=== PATIENT | female | born 1960 | race Caucasian/White ===

== ENCOUNTER 2021-03-17 14:13 | Outpatient (CLI) | payer BC, SELFPAY | END 2021-03-17 14:14 | disposition home or self-care (01) | PROVIDERS: PCP Family Medicine | DX: Z23 Encounter for immunization (principal) | CPT/HCPCS: 0001A; 91300 ==

== ENCOUNTER 2021-04-07 14:13 | Outpatient (CLI) | payer BC, SELFPAY | END 2021-04-07 14:14 | disposition home or self-care (01) | LOC: ANHCOVIDVC 14:14 | PROVIDERS: PCP Family Medicine | DX: Z23 Encounter for immunization (principal) | CPT/HCPCS: 0002A; 91300 ==

== ENCOUNTER 2021-06-01 14:29 | Outpatient (CLI) | payer BC, SELFPAY ==
--- NOTE | ~2021-06-01 | MM_ITS ---
EXAMINATION: MM screening [facility] BI w jace HISTORY: Screening TECHNIQUE: Craniocaudal and mediolateral oblique 3-D tomosynthesis images were obtained and synthetic 2-D images were generated. CAD analysis was submitted and interpreted. COMPARISON: Comparison to multiple prior studies sequentially, with oldest reviewed study dated . BREAST PARENCHYMAL COMPOSITION: The breasts are heterogeneously dense, which may obscure small masses . FINDINGS: There is no evidence of suspicious mass, calcification, or architectural distortion to sugg est malignancy in either breast. There has been no suspicious interval change. IMPRESSION: 1. No mammographic evidence of malignancy. 2. Recommend routine screening mammography in one year. BI-RADS Category 1: Negative Reviewed, dictated and finalized at location A.
== END 2021-06-01 14:30 | disposition home or self-care (01) ==
LOC: ANHIMG 14:32
PROVIDERS: PCP Family Medicine; Visit Provider Obstetrics & Gynecology
DX: Z12.31 Encounter for screening mammogram for malignant neoplasm of breast (principal)
CPT/HCPCS: 77063; 77067

== ENCOUNTER → 2022-10-30 13:03 | Outpatient (CLI) | payer BC, SELFPAY ==
--- NOTE | ~2022-10-30 | DEXA_ITS ---
Bone Density Report Name: MOISES PARMAR Age: 62 Sex: Female Ethnicity: White Date of : 1960 Indication: postmenopausal; screening for osteoporosis; hysterectomy; Referring Provider: FAUSTINA GALLAGHER Study: Bone densitometry was performed. Exam Date: October 30, 2022 Accession number: [id number] Bone Density: Region BMD T-score Z-score Classification AP Spine (L1-L4) 0.809 -2.2 -0.5 Osteopenia Femoral Neck (Left) 0.580 -2.4 -1.0 Osteopenia Total Hip (Left) 0.726 -1.8 -0.6 Osteopenia Femoral Neck (Right) 0.550 -2.7 -1.3 Osteoporosis Total Hip (Right) 0.704 -2.0 -0.8 Osteopenia Total Hip Mean 0.715 -1.9 -0.7 Osteopenia World Health Organization criteria for BMD impression classify patients as: Normal (T-score at or above -1.0), Osteopenia (T-score between -1.0 and -2.5), or Osteoporosis (T-score at or below -2.5). 10-year Fracture Risk: FRAX not reported because: Some T-score for Spine Total or Hip Total or Femoral Neck at or below -2.5 Treated for osteoporosis Clinical Information Provided by Patient: Is being treated for osteoporosis Has used the following medications: HRT (i.e. estrogen/hormone therapy), Calcium Has the following medical conditions: Hysterectomy Patient maximum height was 62 Menopause Age: 38 Drinks caffeinated beverages Onset of menses at age 14 Number of children 3 Impression: The patient has osteoporosis, based on the Right Femoral Neck T-score. Discussion: It is important to ask patients whether they are taking their medications and to encourage continued and appropriate compliance with their osteoporosis therapies to reduce fracture risk. It is also important to review their risk factors and encourage appropriate calcium and vitamin D intakes, exercise, fall prevention and other lifestyle measures. Follow-Up: Consider a repeat BMD and Vertebral Fracture Assessment (VFA) exam in 2 years or sooner if medically necessary, to reassess this patient's status. Reported by: [facility] on 10/30/2022 1:25:00 PM. Reviewed, dictated and finalized at location AGuanakito PEREZ
--- NOTE | ~2022-10-30 | MM_ITS ---
EXAMINATION: MM screening [facility] BI w jace HISTORY: Screening mammogram TECHNIQUE: Craniocaudal and mediolateral oblique 3-D tomosynthesis images were obtained and synthetic 2-D images were generated. CAD analysis was submitted and interpreted. COMPARISON: 06/01/2021, 10/24/2019, 09/26/2017 BREAST PARENCHYMAL COMPOSITION: There are scattered areas of fibroglandular density. FINDINGS: No suspicious mass, calcification, or architectural distortion are identified in either sushila ast to suggest malignancy. There has been no suspicious interval change. IMPRESSION: 1. No mammographic evidence of malignancy. 2. Recommend routine screening mammography in one year. BI-RADS Category 1: Negative Reviewed, dictated and finalized at location A. [employer]
== END ==
PROVIDERS: PCP Family Medicine; Visit Provider Obstetrics & Gynecology
DX: Z12.31 Encounter for screening mammogram for malignant neoplasm of breast (principal); Z78.0 Asymptomatic menopausal state; M85.89 Other specified disorders of bone density and structure, multiple sites; M81.0 Age-related osteoporosis without current pathological fracture
CPT/HCPCS: 77063; 77067; 77080

== ENCOUNTER 2024-05-28 14:48 | Outpatient (CLI) | payer BC, SELFPAY ==
--- NOTE | ~2024-05-28 | MM_ITS ---
EXAMINATION: MM screening [facility] BI w jace HISTORY: Screening mammogram TECHNIQUE: Craniocaudal and mediolateral oblique 3-D tomosynthesis images were obtained and synthetic 2-D images were generated. CAD analysis was submitted and interpreted. COMPARISON: 10/30/2022, 06/01/2021, 10/24/2019 BREAST PARENCHYMAL COMPOSITION:Dense: The breasts are heterogeneously dense, which may obscure small masses. FINDINGS: No suspicious mass, calcification, or architectural distortion are identified in either sushila ast to suggest malignancy. There has been no suspicious interval change. IMPRESSION: No mammographic evidence of malignancy. Recommend routine screening mammography in one year. BI-RADS Category 1: Negative Reviewed, dictated and finalized at location .
== END 2024-05-28 14:49 ==
PROVIDERS: PCP Family Medicine; Visit Provider Obstetrics & Gynecology
DX: Z12.31 Encounter for screening mammogram for malignant neoplasm of breast (principal)
CPT/HCPCS: 77063; 77067

== ENCOUNTER 2024-12-29 08:46 | Outpatient (CLI) | payer BC, SELFPAY ==
--- NOTE | ~2024-12-29 | XR_ITS ---
PA, oblique, and lateral views the right fifth finger CLINICAL HISTORY: Injury FINDINGS: There is an oblique, mildly displaced, intra-articular fracture of the dorsal aspect of the base the fifth distal phalanx. No other fracture or dislocation seen. Joint spaces are intact. Soft tissues are unremarkable. IMPRESSION: Oblique, intra-articular, displaced fracture of the base of the fifth distal phalanx, as detailed abo ve. Reviewed, dictated and finalized at location M. [employer] IMPRESSION: Oblique, intra-articular, displaced fracture of the base of the fifth distal ph alanx, as detailed above.
== END 2024-12-29 08:47 | disposition home or self-care (01) ==
LOC: GOSHIMG 08:46
PROVIDERS: PCP Nurse Practitioner Family; Visit Provider Nurse Practitioner Family
DX: S62.636A Displaced fracture of distal phalanx of right little finger, initial encounter for closed fracture (principal); X58.XXXA Exposure to other specified factors, initial encounter
CPT/HCPCS: 73140

== ENCOUNTER 2025-07-07 08:11 | Outpatient (CLI) | payer BC, SELFPAY ==
[2025-07-07 18:08] LABS: Hematocrit 39.6 % (37.0-47.0); Hemoglobin 12.5 g/dL (12.0-15.0); Immature Granulocyte Percent A 0.3 % (0-0.5); Lymphocytes Absolute Auto 1.06 K/mm3 (0.9-3.2); Mean Corpuscular HGB Conc 31.6 g/dl (32-36); Mean Corpuscular Hemoglobin 32.1 pg (26-34); Mean Corpuscular Volume 101.8 fl (80-100); Nucleated Red Blood Cells Absolute Auto 0.000 K/mm3 (0.0-0.012); Nucleated Red Blood Cells Perc 0.0 % (0.0-0.2); Platelet Count Result 248 k/mm3 (150-375); Red Blood Count 3.89 M/mm3 (4.2-5.4); White Blood Count 3.4 K/mm3 (4.5-10.0)
[2025-07-07 18:26] LABS: Alanine Aminotransferase 32 U/L (6-35); Albumin Level 4.1 g/dL (3.5-5.1); Alkaline Phosphatase 66 U/L (38-126); Anion Gap 5 mmol/L (4-12); Aspartate Amino Transferase 79 U/L (14-36); Bilirubin,Total 0.3 mg/dL (0.2-1.3); Blood Urea Nitrogen 14 mg/dL (7-17); Calcium 9.2 mg/dL (8.4-10.2); Carbon Dioxide 27 mmol/L (22-30); Chloride 107 mmol/L (98-107); Cholesterol 201 mg/dL (0-200); Estimated Glomerular Filt Rate > 60; Glucose 78 mg/dL (65-110); HDL Direct 72 mg/dL; Potassium 4.9 mmol/L (3.4-5.0); Sodium 139 mmol/L (137-145); Total Protein 7.0 g/dL (6.3-8.2); Triglycerides 78 mg/dL (<150)
[2025-07-07 18:45] LABS: Thyroid Stimulating Hormone Reflex 2.950 uIU/mL (0.465-4.68)
[2025-07-07 19:21] LABS: Vitamin B12 213.0 pg/mL (239-931)
== END 2025-07-07 08:12 | disposition home or self-care (01) ==
LOC: ANHGOSHLAB 08:11
PROVIDERS: PCP Family Medicine; Visit Provider Nurse Practitioner Family
DX: M85.80 Other specified disorders of bone density and structure, unspecified site (principal); Z13.220 Encounter for screening for lipoid disorders; D72.819 Decreased white blood cell count, unspecified; E53.9 Vitamin B deficiency, unspecified; G44.229 Chronic tension-type headache, not intractable; E55.9 Vitamin D deficiency, unspecified; Z55.9 Problems related to education and literacy, unspecified
CPT/HCPCS: 36415; 80053; 80061; 82306; 82607; 84443; 85025

== ENCOUNTER 2025-09-24 14:31 | Outpatient (CLI) | payer BC, SELFPAY ==
--- NOTE | ~2025-09-24 | MM_ITS ---
EXAMINATION: MM screening scooter BI w jace HISTORY: Screening TECHNIQUE: Craniocaudal and mediolateral oblique 3-D tomosynthesis images were obtained and synthetic 2-D images were generated. CAD analysis was submitted and interpreted. COMPARISON: Comparison to multiple prior studies sequentially, with oldest reviewed study dated 09/26/2017. BREAST PARENCHYMAL COMPOSITION: Dense: The breasts are heterogeneously dense, which may obscure small masses FINDINGS: There is no evidence of suspicious mass, calcification, or architectural distortion to suggest malignancy in either breast. There has been no suspicious interval change. IMPRESSION: 1. No mammographic evidence of malignancy. 2. Recommend routine screening mammography in one year. BI-RADS Category 1: Negative Reviewed, dictated and finalized at location O.
== END 2025-09-24 14:32 | disposition home or self-care (01) ==
LOC: MICIMG 14:32
PROVIDERS: PCP Family Medicine; Visit Provider Obstetrics & Gynecology
DX: Z12.31 Encounter for screening mammogram for malignant neoplasm of breast (principal)
CPT/HCPCS: 77063; 77067